=== PATIENT | female | born 1955 | race Caucasian/White ===

== ENCOUNTER 2017-07-29 17:32 | Emergency (ER) | payer OTHER ==
[~2017-07-29] VITALS: Ht 167.6 cm; Wt 74.8 kg
[~2017-07-29 17:32] MED LIST: ATENOLOL50 MG PO; COLACE100 MG PO; LAC PO; LEVAQUIN750 MG PO; LEVOTHYROXINE0.05 M2 PO; NORCO1 TA2 PO; ZESTRIL5 MG PO
[2017-07-29 17:43] VITALS: BP 145/81
== END 2017-07-29 21:30 | disposition home or self-care (01) ==
LOC: ED 17:32
DX: J20.9 Acute bronchitis, unspecified (principal); I10 Essential (primary) hypertension; Z90.49 Acquired absence of other specified parts of digestive tract

== ENCOUNTER 2017-10-28 09:17 | Emergency (ER) | payer OTHER ==
[~2017-10-28] VITALS: Ht 162.6 cm; Wt 760.2 kg
[2017-10-28 10:23] LABS: BASOPHIL % 0.2 % (0-2); PLATELET COUNT 269 x10^3mcL (130-400); RED CELL DISTRIBUTION WIDTH 14.1 % (11.5-14.5)
[2017-10-28 10:37] LABS: ALBUMIN 3.7 g/dL (3.4-5.0); ALKALINE PHOSPHATASE 56 U/L (46-116); ALT/SGPT 35 U/L (14-59); AST/SGOT 22 U/L (15-37); BILIRUBIN TOTAL 0.61 mg/dL (0.20-1.00); CALCIUM 9.3 mg/dL (8.5-10.1); CARBON DIOXIDE 28.6 mmol/L (21-32); CHLORIDE SERUM 105 mmol/L (98-107); CHOLESTEROL 201 mg/dL (<200); CREATININE SERUM 0.9 mg/dL (0.6-1.0); GFR1 > 60 mL/min; GLUCOSE SERUM 115 mg/dL (74-106); HDL CHOLESTEROL 35 mg/dL (40-60); PHOSPHOROUS 2.5 mg/dL (2.5-4.9); POTASSIUM SERUM 3.7 mmol/L (3.5-5.1); SODIUM SERUM 141 mmol/L (136-145); TOTAL PROTEIN, SERUM 7.1 g/dL (6.4-8.2); URIC ACID 7.2 mg/dL (2.6-6.0)
[2017-10-28 12:03] VITALS: BP 139/79
== END 2017-10-28 12:03 | disposition home or self-care (01) ==
LOC: ED 09:17
PROVIDERS: Emergency Medicine
DX: R55 Syncope and collapse (principal); R11.10 Vomiting, unspecified; I10 Essential (primary) hypertension; E07.9 Disorder of thyroid, unspecified
CPT/HCPCS: 36415; 83880; Q0092

== ENCOUNTER 2020-02-14 13:08 | Emergency (ER) | payer MEDICARE, OTHER ==
[~2020-02-14] VITALS: Ht 165.1 cm; Wt 68.0 kg
[2020-02-14 13:54] VITALS: Ht 165.1 cm; Wt 68.0 kg
[2020-02-14 15:15] VITALS: BP 103/52
== END 2020-02-14 15:15 | disposition home or self-care (01) ==
LOC: ED 13:08
DX: B34.9 Viral infection, unspecified (principal); I10 Essential (primary) hypertension; Z20.828 Contact with and (suspected) exposure to other viral communicable diseases; Z90.49 Acquired absence of other specified parts of digestive tract; Z90.710 Acquired absence of both cervix and uterus
CPT/HCPCS: 87804; C9803-CS; Q0092; U0003-CS